=== PATIENT | male | born 1980 | race Caucasian/White ===

== ENCOUNTER → 2020-08-28 | Outpatient (CLI) | payer OTHER ==
--- NOTE | 2020-08-28 14:26 | Diagnostic Imaging Report ---
INDICATION: History of right ureteral calculus. COMPARISON: None FINDINGS: 2 supine radiographic views of the abdomen were obtained. Small bowel loops are nondistended. There is no large collection of free intraperitoneal air. No unexpected extraosseous calcifications or unexpected radiopaque foreign bodies are seen. Osseous structures show no gross acute abnormalities. IMPRESSION: 1. Nonobstructed small bowel gas pattern. 2. No unexpected extraosseous calcifications. Dictated by: Dictated on workstation # [id number]
== END ==
LOC: RAD 13:57
PROVIDERS: ATTEND Urology
DX: N20.1 Calculus of ureter (principal)
CPT/HCPCS: 74018

== ENCOUNTER → 2020-09-05 | Outpatient (CLI) | payer OTHER ==
--- NOTE | 2020-09-05 09:52 | Diagnostic Imaging Report ---
PROCEDURE: CT abdomen and pelvis without contrast. TECHNIQUE: Multiple contiguous axial images were obtained through the abdomen and pelvis without the use of intravenous contrast. Auto Exposure Controls were utilized during the CT exam to meet ALARA standards for radiation dose reduction. INDICATION: Right flank and abdominal pain. History of right ureteral stone. COMPARISON: None available. FINDINGS: Absence of intravenous contrast decreases sensitivity for detection of focal lesions and vascular pathology. LOWER THORAX: Lung bases are clear. Visualized heart is normal in size. LIVER: Normal noncontrast appearance. GALLBLADDER: Normal. No calcified gallstone or findings suggest acute cholecystitis. BILE DUCTS: No biliary ductal dilatation. SPLEEN: Normal. PANCREAS: Normal. No pancreatic ductal dilatation. ADRENAL GLANDS: No nodules. KIDNEYS AND URETERS: The kidneys are symmetric in size. There is a 5 mm calculus in the distal right ureter, just proximal to the ureterovesical junction. There is no overt hydroureteronephrosis caused by this stone. There is no renal calculus or hydronephrosis on the left. The left ureter is normal. STOMACH AND BOWEL: Stomach is physiologically-distended. No bowel obstruction. No inflammatory changes. There is minimal colonic diverticulosis, without evidence of acute diverticulitis. APPENDIX: Normal. PELVIC ORGANS/BLADDER: Bladder is normal. Prostate gland is normal in size. PERITONEUM AND RETROPERITONEUM: No pneumoperitoneum. No abdominal free fluid or loculated collection. LYMPH NODES: No lymphadenopathy. VESSELS: Abdominal aorta is nonaneurysmal. ABDOMINAL WALL: Unremarkable. BONES: No acute abnormality. IMPRESSION: There is a 5 mm calculus in the distal right ureter, just proximal to the ureterovesical junction. This causes no overt hydroureteronephrosis. Otherwise, no acute abdominal or pelvic pathology. Dictated by: Dictated on workstation # [id number]
== END ==
LOC: RAD 07:45
PROVIDERS: ATTEND Urology
DX: N20.1 Calculus of ureter (principal)
CPT/HCPCS: 74176

== ENCOUNTER 2020-09-11 05:34 | Outpatient (CLI) | payer OTHER ==
[~2020-09-11] VITALS: Ht 172.7 cm; Wt 100.0 kg
[2020-09-11] MEDS ORDERED: MULT-1102 PO ×2 (10:21)
[2020-09-11] MEDS ORDERED: LEVO88CA4 PO ×2 (10:21)
[2020-09-12] MEDS ORDERED: PHEN-640 PO ×2 (08:25)
[2020-09-12] MEDS ORDERED: SULF1TAB38 PO ×2 (08:25)
== END 2020-09-11 10:24 | disposition home or self-care (01) ==
LOC: PREOP 05:34
PROVIDERS: ATTEND Urology
DX: Z01.818 Encounter for other preprocedural examination (principal)

== ENCOUNTER 2020-09-12 06:08 | Day surgery (SDC) | payer OTHER ==
[2020-09-12] VITALS (9 sets, daily range): BP systolic 101–133; BP diastolic 75–97
[~2020-09-12] VITALS: Ht 172.7 cm; Wt 100.0 kg
[~2020-09-12 06:08] MED LIST: LEVO88CA4 PO; MULT-1102 PO
[2020-09-12] MEDS ORDERED: cefTRIAXone 1,000 MG in WATER (STERILE) FOR INJECTION 10 ML IV ONE (06:15)
[2020-09-12] MEDS: LACTATED RINGERS 1,000 ML IV PRN ×2 (06:24→08:02)
[2020-09-12] MEDS ORDERED: CATHETER FLUSH 10 ML SYR IV PRN (06:45)
[2020-09-12] MEDS ORDERED: ONDANSETRON 4 MG/2 ML (SDV) Z0FRAN ONE (06:54)
[2020-09-12] MEDS ORDERED: SEVOFLURANE (ULTANE) 15 ML INHAL SOLN ONE (06:54)
[2020-09-12] MEDS ORDERED: proPOfol 200 MG/20 ML (DIPRIVAN) VIAL IV ONE (06:54)
[2020-09-12] MEDS ORDERED: LIDOCAINE PF 2% 5 ML (XYLOCAINE) VIAL ONE (06:54)
[2020-09-12] MEDS ORDERED: fentaNYL INJ 100 MCG/2 ML AMP ONE (06:54)
[2020-09-12] MEDS ORDERED: ROCURONIUM 10 MG/ML 5 ML SYRINGE IV ONE (06:54)
[2020-09-12] MEDS ORDERED: MIDAZOLAM 2 MG/2 ML (VERSED) VIAL ONE (06:54)
--- NOTE | 2020-09-12 07:23 | Progress Note-Pre Operative ---
Pre-Operative Progress Note H&P Reviewed The H&P was reviewed, patient examined and no changes noted. Date Seen by Provider: Sep 12, 2020 Time Seen by Provider: 07:22 Date H&P Reviewed: Sep 12, 2020 Time H&P Reviewed: 07:22 Pre-Operative Diagnosis: RT DISTAL URETERAL STONE KRISTY RAMSEY MD Sep 12, 2020 07:23
--- NOTE | 2020-09-12 08:01 | Progress Note-Post Operative ---
Post-Operative Progess Note Surgeon (s)/Materials Engineering Technician (s) Surgeon KRISTY RAMSEY MD Materials Engineering Technician: NONE Pre-Operative Diagnosis RT DISTAL URETERAL STONE Post-Operative Diagnosis SAME Procedure & Operative Findings Date of Procedure 09/12/20 Procedure Performed/Findings CYSTOSCOPY, RT URETEROSCOPY WITH STONE LITHOTRIPSY Anesthesia Type GENERAL Estimated Blood Loss Estimated blood loss (mL): NONE Specimens/Packing Specimens Removed NONE Packing: NONE KRISTY RAMSEY MD Sep 12, 2020 08:01
--- NOTE | 2020-09-12 08:04 | Discharge Inst-Urology ---
Discharge Inst-Urology Reconcile Patient Problems Problems Reviewed?: Yes Final Diagnosis RT DISTAL URETERAL STONE Patient Instructions/Follow Up Plan/Assessment/Instructions Please make appointment to been seen in office in 2 weeks. Patient to strain all urines, save fragments and bring to office appointment Increase oral fluids for 48 hours and then as needed. Diet and Activity as tolerated. If questions or concerns contact your physician Or seek help at emergency department. KRISTY RAMSEY MD Sep 12, 2020 08:03
[2020-09-12] MEDS ORDERED: KETOROLAC 30 MG/ML VIAL ONE (08:10)
[2020-09-12] MEDS ORDERED: FUROSEMIDE 40 MG/4 ML INJ (LASIX) ONE (08:10)
[2020-09-12] MEDS ORDERED: morphine INJ 10 MG/ML 1ML (SYR OR VIAL) IVP ONE (08:15)
[2020-09-12] MEDS ORDERED: ONDANSETRON 4 MG/2 ML (SDV) Z0FRAN IVP PRN (08:15)
[2020-09-12] MEDS ORDERED: fentaNYL INJ 100 MCG/2 ML AMP IVP ONE (08:15)
[2020-09-12] MEDS ORDERED: MEPERIDINE (DEMEROL) INJ 50 MG/ML IVP ONE (08:15)
[2020-09-12] MEDS ORDERED: PHEN-640 PO ×2 (08:25)
[2020-09-12] MEDS ORDERED: SULF1TAB38 PO ×2 (08:25)
--- NOTE | 2020-09-12 09:05 | Diagnostic Imaging Report ---
INDICATION: History of right ureteral calculus, extracorporeal shock wave lithotripsy. TECHNIQUE: 2 supine view of the abdomen 7:01 AM CORRELATION STUDY: 08/28/2020 FINDINGS: Approximately 4 mm calcification in the right pelvis is present, may very well be positioned in the distal right ureter. Appears generally stable from prior CT imaging. No additional calcification in the bilateral renal silhouette. Overlying bowel gas pattern appears nonobstructed. IMPRESSION: 1. Approximately 4 mm calcification in the right hemipelvis likely positioned in the distal right ureter. Dictated by: Dictated on workstation # [id number]
--- NOTE | 2020-09-12 12:36 | Anesthesia-General Post-Op ---
General Patient Condition Mental Status/LOC: Same as Preop Cardiovascular: Satisfactory Nausea/Vomiting: Absent Respiratory: Satisfactory Pain: Controlled Complications: Absent Post Op Complications Complications None Follow Up Care/Instructions Patient Instructions None needed. Anesthesia/Patient Condition Patient Condition Patient is doing well, no complaints, stable vital signs, no apparent adverse anesthesia problems. No complications reported per nursing. EZIO FRANCISCO CRNA Sep 12, 2020 12:36
--- NOTE | 2020-09-12 12:41 | OPERATIVE REPORT ---
DATE OF SERVICE: 09/12/2020 PREOPERATIVE DIAGNOSIS: Right distal ureteral stone. POSTOPERATIVE DIAGNOSIS: Right distal ureteral stone. OPERATION PERFORMED: Cystoscopy with right ureteroscopy and stone lithotripsy. SURGEON: Arnaud Ramsey MD ANESTHESIA: General. COMPLICATIONS: None. DESCRIPTION OF PROCEDURE: Under satisfactory general anesthesia, the patient in lithotomy position, genitalia were prepped and draped in the usual sterile fashion. Cystoscope was introduced under vision. The anterior urethra was normal. The prostate was nonobstructing. Bladder neck was open. Bladder was essentially normal with clear effluxes bilaterally. Using the foroblique lens, I dilated the right ureteral orifice intramural portion to the level of the stone. Observed fluoroscopically to be able to pass a 6.9 [place] semi-rigid ureteroscope. I visualized the stone that was spiky and embedded into the wall of the ureter. I went ahead and broke it up with lithoclast starting at power of 5 and then 12 port. The stone was fragmented completely and disimpacted. Some of the fragments flew into the bladder. I went beyond that proximally. There were no further stones or fragments and distally as well. I removed the ureteroscope. I inserted the cystoscope to empty the bladder. The patient tolerated the procedure and anesthesia well and was sent to recovery room in stable condition. Instructions were given to the . Job ID: [id number] DocumentID: [id number] Dictated Date: 09/12/2020 08:06:02 Fiction And Nonfiction Writer Prose Date: 09/12/2020 12:40:37 Dictated By: ARNAUD RAMSEY MD
== END 2020-09-12 10:00 | disposition home or self-care (01) ==
LOC: SDC 06:08
PROVIDERS: ATTEND Urology
DX: N20.1 Calculus of ureter (principal); E03.9 Hypothyroidism, unspecified; Z79.890 Hormone replacement therapy
CPT/HCPCS: 74018; 76000; 87081

== ENCOUNTER 2020-09-26 16:10 | Outpatient (RCR) | payer OTHER ==
[~2020-09-26 16:10] MED LIST changes: +PHEN-640 PO; +SULF1TAB38 PO
[2020-09-26 17:17] LABS: POTASSIUM 3.7 MMOL/L (3.6-5.0)
[2020-09-26 17:18] LABS: CALCIUM 9.3 MG/DL (8.5-10.1)
[2020-09-26 17:22] LABS: CREATININE SERUM 0.89 MG/DL (0.60-1.30); PHOSPHORUS 3.8 MG/DL (2.3-4.7)
== END 2020-12-25 | disposition home or self-care (01) ==
LOC: LAB 16:10
PROVIDERS: ATTEND Urology
DX: N20.1 Calculus of ureter (principal)
CPT/HCPCS: 36415; 80048; 83970; 84100; 84550; 88300

== ENCOUNTER 2020-10-28 09:00 | Outpatient (RCR) | payer OTHER | END 2021-01-23 | disposition home or self-care (01) | LOC: LAB 09:00 | PROVIDERS: ATTEND Urology | DX: N20.9 Urinary calculus, unspecified (principal) | CPT/HCPCS: 36415; 82140; 82340; 82507; 82570; 83735; 83945; 83986; 84105; 84133; 84300; 84392; 84560 ==

== ENCOUNTER 2021-09-08 09:00 | Outpatient (RCR) | payer OTHER ==
--- NOTE | 2021-08-29 17:09 | Diagnostic Imaging Report ---
INDICATION: Abdominal pain. EXAMINATION: KUB at 4:37 PM. Bowel gas pattern is normal. There are no pathologic masses or calcifications seen. IMPRESSION: Unremarkable abdomen. Dictated by: Dictated on workstation # [id number]
== END 2021-09-16 | disposition home or self-care (01) ==
LOC: LAB 09:00
PROVIDERS: ATTEND Urology
DX: R10.9 Unspecified abdominal pain (principal); Z87.442 Personal history of urinary calculi
CPT/HCPCS: 36415; 74018; 82140; 82340; 82507; 82570; 83735; 83945; 83986; 84105; 84133; 84300; 84392; 84560

== ENCOUNTER → 2022-06-21 | Outpatient (CLI) | payer OTHER, SELFPAY ==
--- NOTE | 2022-06-25 12:01 | Diagnostic Imaging Report ---
CT CARDIAC CALCIUM SCORE INDICATION: Risk stratification for coronary artery disease COMPARISON: None available. TECHNIQUE: Limited CT images of chest without contrast per the coronary artery calcium score. FINDINGS: Total coronary artery calcium score is 4.89 with a very small amount of calcium in the LAD and RCA. No extra coronary arterial calcifications are noted. Visible lungs are clear. Chest wall is unremarkable. IMPRESSION: 1. Total coronary artery calcium score is 4. Dictated by: Dictated on workstation # [id number]
== END ==
LOC: RAD 12:45
PROVIDERS: ATTEND Internal Medicine
DX: I25.10 Atherosclerotic heart disease of native coronary artery without angina pectoris (principal)
CPT/HCPCS: 75571